=== PATIENT | female | born 1980 | race Caucasian/White ===

== ENCOUNTER 2024-07-03 04:38 | Day surgery (SDC) | payer OTHER ==
[2024-06-29 10:42] VITALS: BMI 22.7
[2024-07-03 11:59] VITALS: RESP 20
[2024-07-03] MEDS ORDERED: CEFAZOLIN 2 GM/D5W 2 GM/50 ML ML IVPB ONE (13:21)
[2024-07-03] MEDS ORDERED: LIDOCAINE HCL/PF 2% SDV 5ML VIAL ONE (13:55)
[2024-07-03] MEDS ORDERED: DEXAMETHASONE SOD PHOSPHATE 4 MG/1 ML VIAL ONE (13:55)
[2024-07-03] MEDS ORDERED: METOCLOPRAMIDE HCL INJECTION 10 MG/2 ML VIAL ONE (13:55)
[2024-07-03] MEDS ORDERED: KETOROLAC TROMETHAMINE 30 MG/1 ML VIAL ONE (13:55)
[2024-07-03] MEDS ORDERED: ONDANSETRON 4 MG/2 ML VIAL IVPUSH PRN (13:56)
[2024-07-03] MEDS ORDERED: MIDAZOLAM HCL 2 MG/2 ML SINGLE DOSE VIAL ONE (13:56)
[2024-07-03] MEDS ORDERED: ACETAMINOPHEN INJECTION 100 ML ONE (13:56)
[2024-07-03] MEDS ORDERED: oxyCODONE HCL 5 MG TABLET PO PRN (13:56)
[2024-07-03] MEDS ORDERED: LACTATED RINGERS SOLUTION 1,000 ML IV SCH (14:00)
[2024-07-03] MEDS ORDERED: GLYCOPYRROLATE 0.2 MG/1 ML VIAL ONE (15:32)
[2024-07-03] MEDS ORDERED: KETAMINE HCL 200 MG/20 ML VIAL ONE (15:32)
[2024-07-03] MEDS: IODINE/POTASSIUM IODIDE 5%/10% 14 ML BOTTLE NR ONE (15:45)
[2024-07-03] MEDS: FERRIC SUBSULFATE 500 ML BOTTLE TP ONE (15:45)
[2024-07-03] MEDS ORDERED: IBUPROFEN 800 MG/8 ML IJ IVPB PRN (16:04)
[2024-07-03] MEDS ORDERED: ACETAMINOPHEN 325 MG TABLET (FP) PO PRN (16:04)
[2024-07-03] MEDS ORDERED: IBUPROFEN 600 MG TABLET (FP) PO PRN (16:04)
[2024-07-03 17:53] VITALS: BP 112/70; PULSE 66; TEMP 97.3
== END 2024-07-03 17:40 | disposition home or self-care (01) ==
LOC: JASU-SURG 04:38
PROVIDERS: ATTEND Obstetrics & Gynecology
PROC: 0UBC7ZX Excision of Cervix, Via Natural or Artificial Opening, Diagnostic (ICD-10-PCS; principal; 2024-07-03 14:00)
DX: N87.1 Moderate cervical dysplasia (principal)
CPT/HCPCS: 88305-TC; 88341-TC; 88342-TC; J0131